=== PATIENT | female | born 1965 | race Caucasian/White ===

== ENCOUNTER 2020-08-05 01:16 | Emergency (ER) | payer OTHER ==
[2020-08-05 02:47] LABS: HEMOGLOBIN 12.9 gm/dl (12.3-15.3); RED BLOOD COUNT 4.31 M/UL (4.00-5.10); WHITE BLOOD COUNT 5.6 K/UL (4.5-11.0)
[2020-08-05 03:09] LABS: BUN/CREATININE RATIO 20 (0-10)
== END 2020-08-05 06:40 | disposition home or self-care (01) ==
LOC: ER1 01:16
DX: R07.9 Chest pain, unspecified (principal); I10 Essential (primary) hypertension; F17.210 Nicotine dependence, cigarettes, uncomplicated; Z90.49 Acquired absence of other specified parts of digestive tract; Z90.710 Acquired absence of both cervix and uterus; Z88.0 Allergy status to penicillin; Z91.040 Latex allergy status; Z88.5 Allergy status to narcotic agent; Z88.8 Allergy status to other drugs, medicaments and biological substances; Z79.899 Other long term (current) drug therapy
CPT/HCPCS: 71045; 80053; 82550; 82553; 83874; 84484; 85025; 93005; 96374; 99285; C9113